=== PATIENT | female | born 1995 | race Caucasian/White ===

== ENCOUNTER 2021-06-12 11:45 | Inpatient (IN) ==
[2021-06-12] MEDS ORDERED: CARBOPROST TROMETHAMINE 250 MCG/ML AMP IM PRN (11:55)
[2021-06-12] MEDS ORDERED: miSOPROStoL 200 MCG TABLET RECTAL PRN (11:55)
[2021-06-12] MEDS ORDERED: TRANEXAMIC ACID 1,000 MG in SODIUM CHLORIDE 0.9% 100 ML IV PRN (11:55)
[2021-06-12] MEDS ORDERED: METHYLERGONOVINE 0.2 MG/1 ML AMP IM PRN (11:55)
[2021-06-12] MEDS ORDERED: ONDANSETRON 4 MG/2 ML VIAL IV PRN ×2 (11:55→17:49)
[2021-06-12] MEDS ORDERED: NALOXONE 0.4 MG/ML VIAL IV PRN (11:59)
[2021-06-12] MEDS ORDERED: diphenhydrAMINE 50 MG/1 ML VIAL IV PRN ×2 (11:59)
[2021-06-12] MEDS: LACTATED RINGERS 1,000 ML IV SCH ×2 (12:20→15:01)
[2021-06-12 12:24] LABS: Basophils % 0.2 % (0.0-0.8); Eosinophils % 0.1 % (0.00-10.9); Hematocrit 38.5 VOL% (35.7-47.0); Hemoglobin 12.8 GM/DL (12.0-16.0); Immature Granulocytes % 0.5 %; Immature Granulocytes Absolute 0.07 #; Lymphocytes # 2.4 10*3/uL (1.4-4.0); Lymphocytes % 15.4 % (21.3-54.2); Mean Corpuscular HGB Conc 33.2 GM/DL (32-36); Mean Corpuscular Volume 84.8 FL (87-102); Mean Platelet Volume 10.9 FL (9.6-12.0); Monocytes # 1.1 10*3/uL (0.11-0.8); Monocytes % 6.8 % (1.7-12.7); Platelet Count 160 T/CUMM (130-400); Red Blood Count 4.54 MC/CUMM (3.8-5.5); Red Cell Distribution Width 13.6 % (9.3-17.3); White Blood Count 15.5 T/CUMM (4-12)
[2021-06-12] MEDS ORDERED: OXYTOCIN/LR 20 UNIT/1,000 ML BAG IV ONE ×2 (12:30→18:00)
[2021-06-12] MEDS ORDERED: CITRIC ACID/SODIUM CITRATE 30 ML UDCUP PO ONE (12:30)
[2021-06-12] MEDS ORDERED: LACTATED RINGERS 1,000 ML IV ONE (12:30)
[2021-06-12] MEDS ORDERED: FAMOTIDINE 20 MG/2 ML VIAL IV ONE (12:30)
[2021-06-12] MEDS ORDERED: OXYTOCIN/LR 20 UNIT/1,000 ML BAG IV SCH (12:30)
[2021-06-12] MEDS ORDERED: fentaNYL 2 MCG/ROPIV 0.2% EPID 100 ML EPIDURAL SCH (12:30)
[2021-06-12] MEDS ORDERED: ePHEDrine 50 MG/ML VIAL IV ONE (12:30)
[2021-06-12 12:48] LABS: Alanine Aminotransferase 18 U/L (13-56); Albumin 2.9 G/DL (3.4-5.0); Alkaline Phosphatase 285 U/L (45-117); Aspartate Amino Transferase 15 U/L (0-37); Bilirubin,Total < 0.39 MG/DL (0.20-1.00); Blood Urea Nitrogen 8 MG/DL (7-18); Calcium 9.5 MG/DL (8.5-10.1); Carbon Dioxide 22 MMOL/L (21-32); Chloride 110 MMOL/L (98-107); Estimated Glom Filtration Rate 118 ML/MIN; Glucose 68 MG/DL (74-106); Osmolality,Calculated 272.5 MOS/KG (273-304); Potassium 3.9 MMOL/L (3.5-5.1); Sodium 139 MMOL/L (136-145)
[2021-06-12] MEDS ORDERED: ePHEDrine 50 MG/ML VIAL ONE (13:00)
[2021-06-12] MEDS ORDERED: miSOPROStoL 200 MCG TABLET ONE (17:02)
[2021-06-12] MEDS ORDERED: TRANEXAMIC ACID 1,000 MG/10 ML VIAL ONE (17:02)
[2021-06-12] MEDS ORDERED: CARBOPROST TROMETHAMINE 250 MCG/ML AMP IM ONE (17:03)
[2021-06-12] MEDS ORDERED: METHYLERGONOVINE 0.2 MG/1 ML AMP ONE (17:03)
[2021-06-12] MEDS ORDERED: SODIUM CHLORIDE 0.9% 0 ML IV ONE (17:03)
[2021-06-12] MEDS ORDERED: ACETAMINOPHEN 325 MG TABLET PO PRN (17:49)
[2021-06-12] MEDS ORDERED: oxyCODONE/ACETAMINOPHEN 5-325 MG TABLET PO PRN (17:49)
[2021-06-12] MEDS ORDERED: BISACODYL 10 MG SUPP RECTAL PRN (17:49)
[2021-06-12] MEDS ORDERED: HYDROCORTISONE 2.5% RECTAL CREAM 30 GM TUBE TOP PRN (17:49)
[2021-06-12] MEDS ORDERED: LANOLIN 50% CREAM 0.3 OZ TUBE TOP PRN (17:49)
[2021-06-12] MEDS ORDERED: BENZOCAINE 20%/MENTHOL 0.5% SPRAY 56 GM CAN TOP PRN (17:49)
[2021-06-12] MEDS ORDERED: WITCH HAZEL PADS 100/JAR TOP PRN (17:49)
[2021-06-12 17:51] LABS: Cord Venous Blood HCO3 21.4 MMOL/L; Cord Venous Blood PCO2 42.8 MMHG; Cord Venous Blood PO2 29.4
[2021-06-12] MEDS ORDERED: RHO(D) IMMUNE GLOBULIN 300 MCG SYRINGE IM ONE (18:30)
[2021-06-12] MEDS ORDERED: MEASLES/MUMPS/RUBELLA VACCINE 0.5 ML VIAL SUBCUT ONE (18:30)
[2021-06-12] MEDS ORDERED: DIPH/TET/ACEL PERT BOOSTER VACCINE 0.5 ML VIAL IM ONE (18:30)
[2021-06-12] MEDS: DOCUSATE SODIUM 100 MG CAPSULE PO SCH (21:17)
[2021-06-12] MEDS: IBUPROFEN 800 MG TABLET PO PRN (21:18)
[2021-06-13 05:18] LABS: Basophils % 0.2 % (0.0-0.8); Eosinophils # 0.1 10*3/uL (0.0-0.87); Eosinophils % 0.3 % (0.00-10.9); Hematocrit 33.1 VOL% (35.7-47.0); Hemoglobin 10.8 GM/DL (12.0-16.0); Immature Granulocytes % 0.5 %; Immature Granulocytes Absolute 0.07 #; Lymphocytes # 2.4 10*3/uL (1.4-4.0); Lymphocytes % 16.1 % (21.3-54.2); Mean Corpuscular HGB Conc 32.6 GM/DL (32-36); Mean Corpuscular Volume 85.3 FL (87-102); Mean Platelet Volume 10.6 FL (9.6-12.0); Neutrophils % 75.9 % (38.7-73.9); Platelet Count 126 T/CUMM (130-400); Red Blood Count 3.88 MC/CUMM (3.8-5.5); Red Cell Distribution Width 13.6 % (9.3-17.3); White Blood Count 14.9 T/CUMM (4-12)
[2021-06-13] MEDS: DOCUSATE SODIUM 100 MG CAPSULE PO SCH ×2 (08:02→20:34)
[2021-06-13] MEDS: IBUPROFEN 800 MG TABLET PO PRN ×3 (08:02→21:59)
[2021-06-13] MEDS: oxyCODONE/ACETAMINOPHEN 5-325 MG TABLET PO PRN (13:19)
[2021-06-14] MEDS: IBUPROFEN 800 MG TABLET PO PRN (07:42)
[2021-06-14] MEDS: oxyCODONE/ACETAMINOPHEN 5-325 MG TABLET PO PRN (07:43)
[2021-06-14] MEDS: DOCUSATE SODIUM 100 MG CAPSULE PO SCH (09:16)
[2021-06-14 14:18] VITALS: BP 116/77
== END 2021-06-14 12:05 | disposition home or self-care (01) | DRG 807 ==
LOC: N.LD 11:45 → N.OB 20:50
PROVIDERS: ADMIT Obstetrics & Gynecology; ATTEND Obstetrics & Gynecology